=== PATIENT | female | born 1995 | race Two or more races ===

== ENCOUNTER 2025-01-02 16:54 | Emergency (ER) | payer MEDICAID, SELFPAY ==
[2025-01-02 17:04] VITALS: BP 117/71; PULSE 63; RESP 18; TEMP 36.7; O2SAT 100; BMI 26.2
--- NOTE | 2025-01-02 17:19 | PD.EDRME ---
Rapid Medical Screening Exam RME Arrival date/time: 01/02/25 16:54 29-year-old female presents to the emergency department complaints of abdominal pain since 3 PM today. She does report she has had history of bowel resection in the past. I have greeted and performed a focused initial assessment of this patient. Initial appropriate labs ordered at this time. A comprehensive ED assessment and evaluation of the patient and analysis of all test and completion of medical decision making process will be conducted by additional ED provider. Chief Complaint: Abdominal Pain Time Seen by Provider: 01/02/25 17:04 Vital signs: Vital Signs Temperature 98.0 F 01/02/25 17:04 Pulse Rate 63 01/02/25 17:04 Respiratory Rate 18 01/02/25 17:04 Blood Pressure 117/71 01/02/25 17:04 Pulse Oximetry (%) 100 01/02/25 17:04 Oxygen Delivery Method Room Air 01/02/25 17:04
--- NOTE | 2025-01-02 17:20 | XR_ITS ---
Examination: CT abdomen with intravenous contrast CT pelvis with intravenous contrast 2-D coronal reconstructions 2-D sagittal reconstructions Date and time of exam:December 20242012 hrs. Indications: Onset abdominal pain today. CTDI: vol (mGy) 8.03 DLP: (mGycm) 421 Technique: Multiple axial sections of the abdomen and pelvis have been obtained. 64 slice high-resolution scanner used. 3 mm axial sections have been obtained, post intravenous injection 60 cc [id number] 2-D sagittal, coronal reconstructions obtained. Low dose protocols were performed. One or more of the following dose reduction techniques were used; automated exposure control, adjustment of the mA and/or KV according to patient size, use of iterative reconstruction technique. Findings: No focal liver or splenic lesions No gallstones Gallbladder wall does not appear thickened No pancreatic mass or peripancreatic edema. Normal adrenal glands No renal or ureteral calculi, no hydronephrosis Right lateral abdominal wall hernia defect, 5.7 cm containing right colon but no incarcerated bowel Normal appendix Left lateral abdominal wall hernia defect containing descending colon, 26 mm, no incarcerated bowel Mild free fluid in the pelvis Retroverted uterus Urinary bladder intact Extensive transpedicular lumbar fusion L2-S1 Abnormal cortical bone destruction involving the posterior margin of the L4 vertebral body, sagittal image 1:30, axial image 164, differential would include osteomyelitis Impression: Abdominal hernia defect as above No bowel obstruction Normal appendix Cortical bone destruction involving the posterior margin L4 vertebral body, differential would include osteomyelitis Recommend MRI lumbar spine follow-up pre and post intravenous contrast
[2025-01-02 17:34] LABS: Basophils % (Auto) 0 % (0-2.5); Eosinophils # (Auto) 0.1 Thou/mm3 (0.0-0.5); Eosinophils % (Auto) 1 % (0-10); Hematocrit 44.6 % (36.0-46.0); Hemoglobin 15.4 g/dL (12.0-16.0); Immature Granulocytes % (Auto) 0 % (0-0); Immature Granulocytes Auto 0.02 Thou/mm3 (0.00-0.00); Lymphocytes # (Auto) 2.9 Thou/mm3 (1.0-4.8); Lymphocytes % (Auto) 38 % (10-50); Mean Corpuscular HGB Conc 34.5 g/dl (31.0-37.0); Mean Corpuscular Hemoglobin 30.2 pg (25.0-35.0); Mean Corpuscular Volume 88 fL (80-100); Monocytes # (Auto) 0.5 Thou/mm3 (0.0-0.8); Monocytes % (Auto) 7 % (0-12); Neutrophils # (Auto) 4.1 Thou/mm3 (1.8-7.7); Neutrophils % (Auto) 54 % (37-80); Nucleated Red Blood Cell % 0 /100 WBC (0); Platelet Count 225 Thou/mm3 (140-440); RDW Standard Deviation 38.8 fL (36.4-46.3); White Blood Count 7.6 Thou/mm3 (3.6-11.0)
[2025-01-02 17:54] LABS: Alanine Aminotransferase 18 U/L (10-49); Albumin, Serum 4.8 gm/dL (3.5-5.0); Albumin/Globulin Ratio 1.8 (1.2-2.2); Alkaline Phosphatase 90 U/L (46-116); Anion Gap 8 (7-16); Aspartate Amino Transferase 23 U/L (0-34); BUN/Creatinine Ratio 19 Ratio (12-20); Bilirubin,Total 0.5 mg/dL (0.3-1.2); Blood Urea Nitrogen 13 mg/dL (9-23); Calcium 9.8 mg/dL (8.3-10.6); Calcium (Corrected) 9.8 mg/dL (8.5-10.1); Carbon Dioxide 30.1 mMol/L (20.0-31.0); Chloride 102 mMol/L (98-107); Creatinine (Component) 0.7 mg/dL (0.6-1.3); Estimated Creatinine Clearance 112.4 mL/min (>60); Globulin 2.6 gm/dL (2.3-3.5); Glucose 108 mg/dL (74-106); Lipase 38 U/L (12-53); Osmolality,Calculated 280 (275-295); Potassium 3.8 mMol/L (3.4-5.1); Sodium 140 mMol/L (136-145); Total Protein 7.4 gm/dL (5.7-8.2); eGFR > 60 See Note
[2025-01-02 18:16] LABS: HCG,Qualitative Serum Negative
[2025-01-02 19:11] LABS: Collection Type, Urine Clean Catch
[2025-01-02 19:44] LABS: HCG Qualitative,Urine Negative
[2025-01-02 19:47] LABS: Bacteria,Urine Rare; Bilirubin,Urine Negative (Negative); Blood,Urine Negative (Negative); Budding Yeast,Urine Present; Clarity,Urine Clear (Clear/Hazy); Color,Urine Lt-Yellow (Lt Yel-Yel); Glucose, Urine Negative (Negative); Ketones,Urine Negative (Negative); Leukocyte Esterase,Urine Negative (Negative); Nitrite,Urine Negative (Negative); PH,Urine 7.5 (5.0-7.0); Protein,Urine Trace (Neg - Trace); RBC,Urine 1 /hpf (0-3); Specific Gravity,Urine 1.024 (1.001-1.035); Squamous Epithelial Cell,Urine 2 /hpf (0-5); Urobilinogen,Urine Negative mg/dL (0.0-1.0); WBC,Urine 4 /hpf (0-5)
[2025-01-02 21:18] VITALS: BP 112/67; PULSE 69; RESP 16; TEMP 36.7; O2SAT 99
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
[2025-01-02] MEDS: HYDROcodone/APAP 10/325 TAB PO (22:09)
== END 2025-01-02 22:13 | disposition home or self-care (01) ==
PROVIDERS: Nurse Practitioner Primary Care; Emergency Provider Emergency Medicine
DX: R10.9 Unspecified abdominal pain (principal); G89.29 Other chronic pain; M54.9 Dorsalgia, unspecified; Z90.49 Acquired absence of other specified parts of digestive tract
CPT/HCPCS: 36415; 74177; 80053; 81001; 81025; 83690; 84703; 85025; 99285; A4649; Q9967; A9270